=== PATIENT | female | born 2000 | race Two or more races ===

== ENCOUNTER 2024-04-24 09:15 | Inpatient (IN) | payer MEDICAID ==
[2024-04-22 15:19] LABS: Urine Bacteria None Seen /hpf (None Seen)
[2024-04-22 15:43] LABS: Urine Blood Negative /uL (Negative); Urine Clarity Clear (Clear); Urine Color Light-Yellow (Yellow); Urine Mucus FEW (None Seen); Urine Protein, UAD Negative (Negative); Urine Specific Gravity 1.024 (1.001-1.035); Urine Urobilinogen Normal (Negative); Urine WBC <1 /hpf (0 - 5)
[2024-04-22 15:46] LABS: Basophils # (auto) 0.1 10 ^3/uL (0-0.2); Basophils % (auto) 0.7 % (0.0-2.0); Eosinophils # (auto) 0.3 10 ^3/uL (0-0.8); Eosinophils % (auto) 2.2 % (0.0-7.0); Hematocrit 41.6 % (36.0-46.0); Hemoglobin 14.2 g/dL (12.2-16.2); Lymphocytes # (auto) 4.2 10 ^3/uL (0.4-5.4); Mean Corpuscular Hemoglobin 28.7 pg (28.0-32.0); Mean Corpuscular Hgb Conc. 34.2 g/dL (32.0-36.0); Monocytes % (auto) 8.8 % (0.0-12.0); Neutrophils # (auto) 5.8 10 ^3/uL (1.6-8.6); Neutrophils % (auto) 51.3 % (37.0-80.0); Nucleated Red Blood Cells % 0.1 %; Platelet Count (auto) 258 10^3/uL (140-450); Red Blood Cells 4.95 10^6/uL (4.0-5.20); Red Cell Distribution Width 13.7 % (11.8-14.3); White Blood Cell 11.4 10^3/uL (4.4-10.8)
[2024-04-22 15:53] LABS: INR 1.13 (0.9-1.15); Partial Thromboplastin Time 29.1 SEC (24.5-34.5); Prothrombin Time 11.9 sec (9.3-11.8)
[2024-04-22 15:58] LABS: Alanine Aminotransferase 17 U/L (7-40); Albumin 4.6 g/dL (3.2-4.8); Alkaline Phosphatase 101 U/L (46-116); Anion Gap 5 (5-15); Aspartate Aminotransferase 12 U/L (13-40); BUN/Creatinine Ratio 17.8 (10.0-20.0); Blood Urea Nitrogen 13 mg/dL (9-23); Calcium 9.8 mg/dL (8.7-10.4); Carbon Dioxide 26 mmol/L (20-30); Chloride 106 mmol/L (98-107); Glucose 103 mg/dL (74-106); Potassium 4.1 mmol/L (3.5-5.1); Sodium 137 mmol/L (136-145); Total Protein 7.4 g/dL (5.7-8.2)
[2024-04-22 16:04] LABS: Bilirubin, Total 0.3 mg/dL (0.2-1.0)
[~2024-04-24] VITALS: Ht 167.6 cm; Wt 95.5 kg
[2024-04-24] MEDS ORDERED: fentaNYL CITRATE 100 MCG/2 ML VL ONE (10:53)
[2024-04-24] MEDS ORDERED: PROPOFOL 10 MG/ML 20 ML IV ONE (10:54)
[2024-04-24] MEDS ORDERED: DexAMETHasone SOD PHOS 10MG/1ML VIAL INJ ONE (11:02)
[2024-04-24] MEDS ORDERED: ONDANSETRON HCL 4 MG/2 ML VIAL ONE (11:02)
[2024-04-24] MEDS ORDERED: ROCURONIUM 10MG/ML 10ML VIAL IV ONE (11:02)
[2024-04-24] MEDS ORDERED: MEPERIDINE HCL (50 MG/ML) 1 ML VIAL ONE (11:04)
[2024-04-24] MEDS ORDERED: SUGAMMADEX 200mg/2ml Vial (100MG/ML) IV ONE (11:25)
[2024-04-24] MEDS ORDERED: HYDROmorphone HCL 2 MG/ML VL/or syr IV PRN ×2 (11:30→11:45)
[2024-04-24 11:32] VITALS: PULSE 89; RESP 12; O2SAT 97
[2024-04-24] MEDS ORDERED: NITROGLYCERIN 0.4 MG SL TAB SL PRN (12:00)
[2024-04-24] MEDS ORDERED: MORPHINE SULFATE INJ 2 MG/ml SYRG IV PRN (12:00)
[2024-04-24] MEDS: MEPERIDINE HCL (25 MG/ML) 1ML VIAL IV PRN (12:35)
[2024-04-24] MEDS: ONDANSETRON HCL 4 MG/2 ML VIAL IV ONE (14:49)
[2024-04-24 15:13] VITALS: BP 117/75; PULSE 73; RESP 16; TEMP 98.4; O2SAT 96
[2024-04-24 17:02] VITALS: BP 104/60; PULSE 76; RESP 16; TEMP 98.1; O2SAT 93
[2024-04-24] MEDS: D5W/SOD CHL 0.45%/KCL 20MEQ 1,000 ML IV SCH (17:32)
[2024-04-24] MEDS: ceFAZolin 2 GM/D5W50ml 50 ML IV SCH (17:32)
[2024-04-24] MEDS: ACETAMINOPHEN/CODEINE#3 (300/30mg) TAB PO PRN (17:32)
[2024-04-24 20:00] VITALS: PULSE 80; RESP 18; O2SAT 95
[2024-04-24 21:00] VITALS: BP 120/73; PULSE 80; RESP 16; TEMP 99; O2SAT 95
[2024-04-24] MEDS: MORPHINE SULFATE INJ 2 MG/ml SYRG IV PRN (21:00)
[2024-04-24] MEDS ORDERED: diphenhdrAMINE HCL 50 MG/1 ML VL IV ONE (21:30)
[2024-04-25] MEDS: PIPERACILLIN-TAZOB 3.375GM 100 ML IV SCH
[2024-04-25 01:00] VITALS: BP 100/57; PULSE 73; RESP 17; TEMP 98.7; O2SAT 95
[2024-04-25 05:00] VITALS: BP 121/57; PULSE 70; RESP 16; TEMP 98.2; O2SAT 96
[2024-04-25 07:13] LABS: Basophils # (auto) 0 10 ^3/uL (0-0.2); Basophils % (auto) 0.1 % (0.0-2.0); Eosinophils # (auto) 0 10 ^3/uL (0-0.8); Eosinophils % (auto) 0.1 % (0.0-7.0); Hematocrit 38.1 % (36.0-46.0); Lymphocytes # (auto) 3.1 10 ^3/uL (0.4-5.4); Lymphocytes % (auto) 16.6 % (10.0-50.0); Mean Corpuscular Volume 85.4 fL (80.0-100.0); Monocytes # (auto) 1.2 10 ^3/uL (0-1.3); Monocytes % (auto) 6.3 % (0.0-12.0); Neutrophils # (auto) 14.4 10 ^3/uL (1.6-8.6); Neutrophils % (auto) 76.9 % (37.0-80.0); Nucleated Red Blood Cells % 0.1 %; Platelet Count (auto) 241 10^3/uL (140-450); Red Blood Cells 4.47 10^6/uL (4.0-5.20); Red Cell Distribution Width 13.5 % (11.8-14.3); White Blood Cell 18.8 10^3/uL (4.4-10.8)
[2024-04-25 08:59] VITALS: BP 116/72; PULSE 72; RESP 18; TEMP 97.9; O2SAT 96
[2024-04-25 13:35] VITALS: BP 109/61; PULSE 69; RESP 18; TEMP 98.2; O2SAT 96
[2024-04-25] MEDS: diphenhdrAMINE HCL 50 MG/1 ML VL IV ONE (16:56)
[2024-04-25 17:06] VITALS: BP 110/62; PULSE 66; RESP 16; TEMP 98; O2SAT 98
[2024-04-25] MEDS: D5W/SOD CHL 0.45%/KCL 20MEQ 1,000 ML IV SCH (17:58)
[2024-04-26] VITALS (8 sets, daily range): BP systolic 96–117; BP diastolic 43–68; PULSE 63–84; RESP 16–20; TEMP 97.6–99.1; O2SAT 97–98
[2024-04-26 07:02] LABS: Alanine Aminotransferase 19 U/L (7-40); Alkaline Phosphatase 82 U/L (46-116); Anion Gap 4 (5-15); Blood Urea Nitrogen 9 mg/dL (9-23); Calcium 9.2 mg/dL (8.7-10.4); Carbon Dioxide 27 mmol/L (20-30); Chloride 109 mmol/L (98-107); Glucose 94 mg/dL (74-106); Potassium 4.3 mmol/L (3.5-5.1); Sodium 140 mmol/L (136-145)
[2024-04-26 07:03] LABS: Albumin 3.7 g/dL (3.2-4.8); Aspartate Aminotransferase 14 U/L (13-40); Bilirubin, Total 0.4 mg/dL (0.2-1.0); Total Protein 6.1 g/dL (5.7-8.2)
[2024-04-26 07:15] LABS: Basophils # (auto) 0.1 10 ^3/uL (0-0.2); Basophils % (auto) 0.6 % (0.0-2.0); Eosinophils # (auto) 0.1 10 ^3/uL (0-0.8); Eosinophils % (auto) 1.1 % (0.0-7.0); Hematocrit 36.8 % (36.0-46.0); Hemoglobin 12.6 g/dL (12.2-16.2); Lymphocytes # (auto) 5.2 10 ^3/uL (0.4-5.4); Lymphocytes % (auto) 49.1 % (10.0-50.0); Mean Corpuscular Hemoglobin 29.8 pg (28.0-32.0); Mean Corpuscular Hgb Conc. 34.4 g/dL (32.0-36.0); Mean Corpuscular Volume 86.8 fL (80.0-100.0); Monocytes # (auto) 0.8 10 ^3/uL (0-1.3); Monocytes % (auto) 7.7 % (0.0-12.0); Neutrophils # (auto) 4.4 10 ^3/uL (1.6-8.6); Neutrophils % (auto) 41.5 % (37.0-80.0); Nucleated Red Blood Cells % 0.1 %; Platelet Count (auto) 221 10^3/uL (140-450); Red Blood Cells 4.24 10^6/uL (4.0-5.20); Red Cell Distribution Width 13.6 % (11.8-14.3); White Blood Cell 10.7 10^3/uL (4.4-10.8)
[2024-04-26] MEDS: metroNIDAZOLE 500 MG TAB PO SCH (13:38)
[2024-04-26] MEDS: CIPROFLOXACIN HCL 500 MG TAB PO SCH (21:26)
[2024-04-27 01:00] VITALS: BP 102/50; PULSE 65; RESP 18; O2SAT 95
[2024-04-27 05:00] VITALS: BP 104/47; PULSE 61; RESP 18; TEMP 98; O2SAT 97
[2024-04-27 06:18] LABS: Basophils # (auto) 0.1 10 ^3/uL (0-0.2); Basophils % (auto) 0.6 % (0.0-2.0); Eosinophils # (auto) 0.3 10 ^3/uL (0-0.8); Eosinophils % (auto) 2.5 % (0.0-7.0); Hematocrit 37.8 % (36.0-46.0); Lymphocytes # (auto) 4.3 10 ^3/uL (0.4-5.4); Lymphocytes % (auto) 37.4 % (10.0-50.0); Mean Corpuscular Hemoglobin 29.2 pg (28.0-32.0); Mean Corpuscular Hgb Conc. 34.4 g/dL (32.0-36.0); Mean Corpuscular Volume 84.7 fL (80.0-100.0); Monocytes % (auto) 8.8 % (0.0-12.0); Neutrophils # (auto) 5.8 10 ^3/uL (1.6-8.6); Neutrophils % (auto) 50.7 % (37.0-80.0); Nucleated Red Blood Cells % 0.1 %; Platelet Count (auto) 231 10^3/uL (140-450); Red Blood Cells 4.46 10^6/uL (4.0-5.20); Red Cell Distribution Width 13.1 % (11.8-14.3); White Blood Cell 11.5 10^3/uL (4.4-10.8)
[2024-04-27 06:44] LABS: Alanine Aminotransferase 21 U/L (7-40); Albumin 3.8 g/dL (3.2-4.8); Alkaline Phosphatase 86 U/L (46-116); Anion Gap 5 (5-15); Aspartate Aminotransferase 14 U/L (13-40); BUN/Creatinine Ratio 11.4 (10.0-20.0); Bilirubin, Total 0.3 mg/dL (0.2-1.0); Blood Urea Nitrogen 9 mg/dL (9-23); Calcium 8.9 mg/dL (8.7-10.4); Carbon Dioxide 26 mmol/L (20-30); Chloride 106 mmol/L (98-107); Glucose 92 mg/dL (74-106); Magnesium 1.8 mg/dL (1.6-2.6); Potassium 3.8 mmol/L (3.5-5.1); Sodium 137 mmol/L (136-145); Total Protein 6.2 g/dL (5.7-8.2)
[2024-04-27] MEDS: SUCCINYLCHOLINE CHLORIDE 20 MG/ML 10ML VIAL IV ONE (07:32)
[2024-04-27] MEDS: ceFAZolin 2 GM/D5W100ml 100 ML IV ONE (07:32)
[2024-04-27] MEDS: BUPIVACAINE HCL 0.25% P/F 10 ML VIAL ONE (07:32)
[2024-04-27] MEDS: LIDOCAINE W/ EPINEPHRINE 1% 20ML VIAL ONE (07:32)
[2024-04-27 08:30] VITALS: PULSE 79; RESP 20; O2SAT 97
[2024-04-27 09:00] VITALS: BP_SYST 116; BP_SYST 120; BP_DIAS 67; BP_DIAS 73; PULSE 79; PULSE 94; RESP 17; RESP 20; TEMP 97.3; TEMP 98.3; O2SAT 97; O2SAT 98
[2024-04-27 13:00] VITALS: BP 116/67; PULSE 87; RESP 20; TEMP 98.4; O2SAT 97
[2024-04-27] MEDS ORDERED: CIP500T PO (15:25)
[2024-04-27] MEDS ORDERED: MET500T PO (15:25)
[2024-04-27] MEDS ORDERED: ACE3T PO (15:25)
[2024-04-27 15:42] VITALS: BP 116/67; PULSE 87; RESP 20; TEMP 98.4; O2SAT 97
== END 2024-04-27 16:42 | disposition home or self-care (01) | DRG 263 ==
LOC: SUR 09:15 → OVERFLOW 12:33 → WEST WING 15:13
PROVIDERS: ADMIT Internal Medicine; ATTEND Family Medicine
PROC: 0FT44ZZ Resection of Gallbladder, Percutaneous Endoscopic Approach (ICD-10-PCS; principal; 2024-04-24 10:47)
DX: K80.12 Calculus of gallbladder with acute and chronic cholecystitis without obstruction (principal); E66.9 Obesity, unspecified; K66.0 Peritoneal adhesions (postprocedural) (postinfection); T36.1X5A Adverse effect of cephalosporins and other beta-lactam antibiotics, initial encounter; Y92.89 Other specified places as the place of occurrence of the external cause; Z88.8 Allergy status to other drugs, medicaments and biological substances; Z68.31 Body mass index [BMI] 31.0-31.9, adult
CPT/HCPCS: 36415; 80053; 81001; 82247; 83735; 84702; 85025; 85610; 85730; 86850; 86900; 86901; 93970; G0378; J0330; J1100; J2405; J2543; J2704; J3490

== ENCOUNTER 2024-05-03 19:55 | Emergency (ER) | payer MEDICAID ==
[~2024-05-03] VITALS: Ht 167.6 cm; Wt 95.2 kg
[~2024-05-03 19:55] MED LIST: ACE3T PO; CIP500T PO; MET500T PO
[2024-05-03 22:12] VITALS: BP 131/83; PULSE 81; RESP 17; TEMP 98.6; O2SAT 98
[2024-05-03] MEDS ORDERED: COROSUS LEFT EAR (22:25)
[2024-05-03] MEDS: DexAMETHasone SOD PHOS 10MG/1ML VIAL INJ IM ONE (22:28)
== END 2024-05-03 22:37 | disposition home or self-care (01) ==
LOC: ER 19:55
DX: H60.92 Unspecified otitis externa, left ear (principal); Z88.1 Allergy status to other antibiotic agents
CPT/HCPCS: 96372; 99283; J1100

== ENCOUNTER 2025-08-06 13:45 | Emergency (ER) | payer MEDICAID ==
[~2025-08-06] VITALS: Ht 167.6 cm; Wt 98.7 kg
[~2025-08-06 13:45] MED LIST changes: +COROSUS LEFT EAR
[2025-08-06 14:38] LABS: Hematocrit 40.5 % (36.0-46.0); Hemoglobin 13.8 g/dL (12.2-16.2); Mean Corpuscular Hemoglobin 28.3 pg (28.0-32.0); Mean Corpuscular Volume 83.4 fL (80.0-100.0); Nucleated Red Blood Cells % 0.1 %
[2025-08-06 15:12] VITALS: BP 124/81; PULSE 74; RESP 16; TEMP 98.3; O2SAT 99
--- NOTE | 2025-08-06 15:40 | ED.PDOC ---
HEAD OF OPERATION AND LOGISTICS HPI Comments A 25 YEAR OLD FEMALE PRESENTS TO THE ED WITH COMPLAINT OF VAGINAL BLEEDING . PATIENT STATES HE IS CURRENTLY 10 WEEKS AND STATES HE HAS BEEN HAVING ABDOMINAL CRAMPING FOR THE PAST 5 DAYS. PATIENT STATES TODAY STARTED TO HAVE SPOTTING AND GOT WORRIED AND CAME TO THE ED FOR FURTHER EVALUATION. PATIENT DENIES FEVER, CHILLS, SHORTNESS OF BREATH, CHEST PAIN, ABDOMINAL PAIN, NAUSEA, VOMITING, HEADACHE, OR OTHER COMPLAINTS. NO OTHER SYMPTOMS OR MODIFYING FACTORS AT THIS TIME. PATIENT IS ALERT, ORIENTED X 4, AND HAS STEADY GAIT. Chief Complaint: Vaginal Bleed Time Seen by MD: 15:37 Reviewed Notes: Nurses Notes, Medications, Allergies Allergies: Coded Allergies: Piperacillin (Verified Adverse Reaction, Severe, 04/25/24) severe pain in upper arm and veins Tazobactam (Verified Adverse Reaction, Severe, 04/25/24) severe pain in upper arm and veins Cefazolin (Unverified Adverse Reaction, Mild, Severe pain and irritation , 04/25/24) See notes for details Home Meds Active Scripts [id number]-An (Otic) (Cortisporin Otic Susp) [address], 4 DROP LEFT EAR TID for 7 Days, #5 ML Prov:STEFANI BEYER 05/03/24 Acetaminophen W/ Codeine (Tylenol W/Cod #3) 1 Tab Tb, 1 TAB PO Q4HP PRN for 5 Days, #25 TAB Prov:RIDDHI ARMENDARIZ MD 04/27/24 Metronidazole (Metronidazole) 500 Mg Tab, 500 MG PO Q8HR for 7 Days, #21 TAB Prov:RIDDHI ARMENDARIZ MD 04/27/24 Ciprofloxacin Hydrochloride (Ciprofloxacin HCl) 500 Mg Tab, 500 MG PO Q12HR for 7 Days, #14 TAB Prov:RIDDHI ARMENDARIZ MD 04/27/24 Information Source: Patient Mode of Arrival: Ambulatory Brought in by: SELF Timing: Days Prehospital treatment: None Severity: Mild Vaginal Discharge: None Vaginal Lesions: None Vaginal Mass: None Onset Of Mass/Bleeding: Spontaneous Sexual Activity: Last Consensual [place]: Days Control: None History of: Current Blood Type: Unknown Associated Signs and Symptoms: Vaginal Bleeding, Cramping Past Medical History PAST MEDICAL HISTORY: Denies Surgical History: Denies all surgeries 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 Family History Family History: Reviewed,noncontributory to illness Social History Smoker: Non-Smoker Alcohol: Denies ETOH Use Drugs: Denies Drug Use Constitutional: denies: chills, diaphoresis, fatigue, fever, malaise, sweats, weakness, others EENTM: denies: blurred vision, double vision, ear bleeding, ear discharge, ear drainage, ear pain, ear ringing, eye pain, eye redness, hearing loss, mouth pain, mouth swelling, nasal discharge, nose bleeding, nose congestion, nose pain, photophobia, tearing, throat pain, throat swelling, voice changes, others Respiratory: denies: cough, hemoptysis, orthopnea, SOB at rest, shortness of breath, SOB with excertion, stridor, wheezing, others Cardiovascular: denies: chest pain, dizzy spells, diaphoresis, Dyspnea on exertion, edema, irregular heart beat, left arm pain, lightheadedness, palpitations, PND, syncope, others Gastrointestinal: reports: abdominal pain; denies: abdomen distended, blood streaked bowels, constipated, diarrhea, dysphagia, difficulty swallowing, hematemesis, melena, nausea, poor appetite, poor fluid intake, rectal bleeding, rectal pain, vomiting, others Genitourinary: reports: abnormal vagina bleeding, ; denies: burning, dyspareunia, dysuria, flank pain, frequency, hematuria, incontinence, pain, vagina discharge, urgency, others Neurological: denies: dizziness, fainting, headache, left sided numbness, left sided weakness, numbness, paresthesia, pre-existing deficit, right sided numbness, right sided weakness, seizure, speech problems, tingling, tremors, weakness, others Musculoskeletal: denies: back pain, gout, joint pain, joint swelling, muscle pain, muscle stiffness, neck pain, others Integumetry: denies: bruises, change in color, change in hair/nails, dryness, laceration, lesions, lumps, rash, wounds, others Allergic/Immunocompromised: denies: Difficulty Healing, Frequent Infections, Hives, Itching, others Hematologic/Lymphatic: denies: anemia, blood clots, easy bleeding, easy bruising, swollen glands, others Endocrine: denies: excessive hunger, excessive sweating, excessive thirst, excessive urination, flushing, intolerance to cold, intolerance to heat, unexplained weight gain, unexplained weight loss, others Psychiatric: denies: anxiety, bipolar disorder, depression, hopeless, panic disorder, schizophrenia, sleepless, suicidal, others All Other Systems: Reviewed and Negative Physical Exam General Appearance: No Apparent Distress, Normal HEENT: Normal ENT Inspection, PERRL/EOMI, Pharynx Normal, TMs Normal Neck: Full Range of Motion, Non-Tender, Normal, Normal Inspection Respiratory: Chest Non-Tender, Lungs Clear, No Accessory Muscle Use, No Respiratory Distress, Normal Breath Sounds Cardiovascular: No Edema, No JVD, No Murmur, No Gallop, Normal Peripheral Pulses, Regular Rate/Rhythm Breast Exam: Deferred Gastrointestinal: No Organomegaly, Non Tender, No Pulsatile Mass, Normal Bowel Sounds, Soft Genitalia: Deferred Pelvic: Normal External Exam, Tender Uterus, Other (VAGINAL SPOTTING, NO VAGINAL; BLEEDING AND BLOOD CLOTS. ) Rectal: Deferred Extremities: No calf tenderness, Normal capillary refill, Normal inspection, Normal range of motion, Non-tender, No pedal edema Musculoskeletal : Apperance: Normal Neurologic: Alert, pl sql developer II-XII nml as Tested, No Motor Deficits, Normal Affect, Normal Mood, No Sensory Deficits Cerebellar Function: Normal Reflexes: Normal Skin: Dry, Normal Color, Warm Peripheral Pulses: 2+ carotid (R), 2+ carotid (L) Lymphatic: No Adenopathy Was a procedure done? Was a procedure done?: No Differential Diagnosis (WOOD MACHINIST APPRENTICE) Vaginal Bleeding: - Missed, - Threatened, Blood Loss Anemia, Cervicitis, UTI, Vaginitis, Other (MISCARRIAGE, SUBCHORIONIC HEMORRHAGE, VAGINAL BLEEDING IN ,) Vaginal Discharge: UTI X-Ray, Labs, Meds, VS Vital Signs Date Time Temp Pulse Resp B/P (MAP) Pulse Ox O2 Delivery O2 Flow Rate FiO2 08/06/25 15:12 98.3 74 16 124/81 (95) 99 98.3 08/06/25 15:12 74 16 99 Room Air 08/06/25 13:46 98.2 76 18 130/81 100 98.2 Lab Test 08/06/25 14:14 Range/Units White Blood Count 11.2 H 4.4-10.8 10^3/uL Red Blood Count 4.85 4.0-5.20 10^6/uL Hemoglobin 13.8 12.2-16.2 g/dL Hematocrit 40.5 36.0-46.0 % Mean Corpuscular Volume 83.4 80.0-100.0 fL Mean Corpuscular Hemoglobin 28.3 28.0-32.0 pg Mean Corpuscular Hemoglobin Concent 34.0 32.0-36.0 g/dL Red Cell Distribution Width 13.4 11.8-14.3 % Platelet Count 228 140-450 10^3/uL Mean Platelet Volume 10.5 6.9-10.8 fL Neutrophils (%) (Auto) 63.5 37.0-80.0 % Lymphocytes (%) (Auto) 27.6 10.0-50.0 % Monocytes (%) (Auto) 7.5 0.0-12.0 % Eosinophils (%) (Auto) 1.0 0.0-7.0 % Basophils (%) (Auto) 0.4 0.0-2.0 % Neutrophils # (Auto) 7.1 1.6-8.6 10 ^3/uL Lymphocytes # (Auto) 3.1 0.4-5.4 10 ^3/uL Monocytes # (Auto) 0.8 0-1.3 10 ^3/uL Eosinophils # (Auto) 0.1 0-0.8 10 ^3/uL Basophils # (Auto) 0 0-0.2 10 ^3/uL Nucleated Red Blood Cells 0.1 % Beta HCG, Quantitative 699468.8 H 1.5-4.2 mIU/mL PATIENT: FABIAN ALBARRANCCT: [id number]: [id number] : 2000 LOC: ER ROOM / BED: / AGE / SEX: 25 / F ADM STATUS: [facility] ER SERVICE [id number] ORDERING PHYSICIAN: FRANSISCO LEDEZMA PROCEDURE(s): OB4US - OB ULTRASOUND COMP LESS 14WKS REASON: VAGINAL BLEEDING, 10 WEEKS ORDER NUMBER(s): [id number], ACCESSION NUMBER(s): [id number] INDICATION: VAGINAL BLEEDING, 10 WEEKS TECHNIQUE: Multiple real-time grayscale transabdominal sonographic images along with color and duplex Doppler of the uterus and ovaries were obtained. COMPARISON: None FINDINGS: The uterus measures 12.8 x 8.1 x 5.8 cm. The endometrial stripe measures contains an IUP. The right ovary measures 3.17 x 2.08 x 1.90 cm. Volume of the right ovary is 6.55 mL The left ovary N/V Subsequent color and duplex Doppler interrogation of the right ovary demonstrated symmetric vascular flow to both ovaries, though this does not exclude the possibility of torsion due to the dual blood supply. Gestational sac 3.72 cm which equals 8 weeks 6 days pole: 1.81 cm which equals 8 weeks 2 days; yolk sac is visualized. EGA: 8 weeks 4 days; [facility] 03/14/2026 FHR: 173 beats per minute IMPRESSION: 1. Grossly unremarkable pelvic ultrasound. 2. SLIUP: 8w4d; [facility]: 03/14/2026. 3. Anechoic structure noted adjacent to the gestational sac measuring 1.7 x 0.9 x 1.5 cm. May represent a subchorionic hemorrhage. ATED BY: BLACK RIVAS Jr., DO DICTATED DATE/TIME: 08/06/251605 SIGNED BY: BLACK RIVAS Jr., SIGNED DATE/TIME: 08/06/251605 CC: X-Ray, Labs, Meds, VS Comment COURSE: EXTERNAL MEDICAL RECORDS REVIEWED: [NONE] INDEPENDENT HISTORIANS: [NONE] SOCIAL DETERMINANTS OF HEALTH: [NONE] LABS ORDERED: CBC, UA, BETA HCG REVIEWED AND INTERPRETED RESULTS: NONE IMAGING ORDERED: OB ULTRASOUND TREATMENTS ORDERED: NO PROCEDURES PERFORMED: NONE CRITICAL CARE TIME: NONE I HAVE DISCUSSED THE PATIENT WITH THE ATTENDING PHYSICIAN DR. IVY AND HE AGREES WITH THE PATIENT'S PLAN OF CARE AND DISPOSITION. BASED ON HISTORY OF PRESENT ILLNESS, AND PHYSICAL EXAM, PATIENT WILL BE DISCHARGED HOME. SHARED DECISION MAKING: DISCUSSED WITH PATIENT THAT THEIR WORKUP WAS NORMAL. PATIENT INSTRUCTED TO FOLLOW UP WITH PRIMARY CARE PROVIDER IN 1-2 DAYS FOR RE- EVALUATION OF SYMPTOMS. PATIENT VERBALIZES UNDERSTANDING TO RETURN TO ED FOR NEW OR WORSENING SYMPTOMS OR IF FOLLOW UP WITH PCP CANNOT BE OBTAINED. PATIENT FEELS COMFORTABLE GOING HOME AT THIS TIME. ALL QUESTIONS ADDRESSED AT TIME OF DISCHARGE. Time of 1ST Reevaluation: 16:20 Reevaluation 1ST: Improved Patient Education/Counseling: Diagnosis, Treatment, Need For Follow Up Family Education/Counseling: Diagnosis, Treatment, No Family Present (PRIOR) Medical Screening: No EMC Exist At This Time Departure 1 Departure Time of Disposition: 16:20 Impression: Primary Impression: Vaginal spotting Additional Impression: Threatened in first trimester Disposition: HOME / SELF CARE / HOMELESS Condition: Stable Additional Instructions: INSTRUCTIONS: FOLLOW-UP WITH HEAD OF OPERATION AND LOGISTICS IN 1 TO 2 DAYS. TAKE MEDICATIONS PRESCRIBED. RETURN TO ED FOR ANY NEW OR WORSENING SYMPTOMS. Discharged With: Self Critical Care Note Critical Care Time?: No Stability Stability form required: No Heart Score Heart Score: Heart Score Response (Comments) Value History N/A 0 EKG N/A 0 Age N/A 0 Risk Factors N/A 0 Troponin N/A 0 Total 0 I personally scribed for FRANSISCO ELDEZMA ([email or web address]) on 08/06/25 at 15:40. Electronically submitted by Selena Tolbert ([email or web address]). I personally scribed for FRANSISCO LEDEZMA ([email or web address]) on 08/06/25 at 15:43. Electronically submitted by Selena GARCIA). FRANSISCO LEDEZMA Aug 06, 2025 15:40
--- NOTE | 2025-08-06 16:08 | DVH ---
INDICATION: VAGINAL BLEEDING, 10 WEEKS TECHNIQUE: Multiple real-time grayscale transabdominal sonographic images along with color and duplex Doppler of the uterus and ovaries were obtained. COMPARISON: None FINDINGS: The uterus measures 12.8 x 8.1 x 5.8 cm. The endometrial stripe measures contains an IUP. The right ovary measures 3.17 x 2.08 x 1.90 cm. Volume of the right ovary is 6.55 mL The left ovary N/V Subsequent color and duplex Doppler interrogation of the right ovary demonstrated symmetric vascular flow to both ovaries, though this does not exclude the possibility of torsion due to the dual blood supply. Gestational sac 3.72 cm which equals 8 weeks 6 days pole: 1.81 cm which equals 8 weeks 2 days; yolk sac is visualized. EGA: 8 weeks 4 days; [facility] 03/14/2026 FHR: 173 beats per minute IMPRESSION: 1. Grossly unremarkable pelvic ultrasound. 2. SLIUP: 8w4d; [facility]: 03/14/2026. 3. Anechoic structure noted adjacent to the gestational sac measuring 1.7 x 0.9 x 1.5 cm. May represent a subchorionic hemorrhage.
== END 2025-08-06 16:06 | disposition home or self-care (01) ==
LOC: ER 13:45
DX: O20.0 Threatened abortion (principal); Z3A.10 10 weeks gestation of pregnancy; Z88.0 Allergy status to penicillin; Z88.1 Allergy status to other antibiotic agents; Z88.8 Allergy status to other drugs, medicaments and biological substances
CPT/HCPCS: 36415; 76801; 84702; 85025